=== PATIENT | female | born 1975 ===

== ENCOUNTER 2017-09-23 09:10 | Day surgery (SDC) | payer OTHER ==
--- NOTE | 2017-09-22 14:31 | GHP ---
[f rep st] PREOP HISTORY AND PHYSICAL DATE OF ADMISSION: 09/23/2017 PREOP DIAGNOSIS: Breast hypertrophy. HISTORY OF PRESENT ILLNESS: The patient is a 42-year-old woman, who has had 1 child. She has been b othered by breast hypertrophy for many years. She complains of neck, back, and shoulder pain. The e xcessive breast size interferes with her ability to exercise. PAST MEDICAL HISTORY: Generally unremarkable. She is healthy, nonsmoker. ALLERGIES: No known drug allergies. MEDICATIONS: Daily multivitamin. EXAMINATION: GENERAL: She is a healthy-looking 42-year-old woman. She stands 5 feet 9 inches tall, weighs 180 pounds. RESPIRATORY: Shows clear with good air entry. CARDIOVASCULAR: Heart sounds ar e normal. BREASTS: Reveals significant macromastia with a sternal [id number] distance of 33 cm on the right and 34 cm on the left. IMPRESSION: Fit for procedure. PLAN: Bilateral breast reduction. /[id number]/MODL
[2017-09-23] MEDS ORDERED: LIDO/EPI 1% **for epidural** 30 ML SDV ONE (09:22)
[2017-09-23] MEDS ORDERED: LIDOCAINE 1% 2 ML INJ ONE (09:49)
[2017-09-23] MEDS ORDERED: MIDAZOLAM 2 MG/2 ML VIAL IVP ONE (10:11)
--- NOTE | 2017-09-23 10:12 | PDANEPAE ---
ANE History of Present Illness Patient presents for bilateral breast reduction ANE Past Medical History - Cardiovascular History Hx Hypertension: No Hx Arrhythmias: No Hx Chest Pain: No Hx Coronary Artery / Peripheral Vascular Disease: No Hx CHF / Valvular Disease: No Hx Palpitations: No - Pulmonary History Hx COPD: No Hx Asthma/Reactive Airway Disease: No Hx Recent Upper Respiratory Infection: No Hx Oxygen in Use at Home: No Hx Sleep Apnea: No Sleep Apnea Screening Result - Last Documented: Negative - Neurologic History Hx Cerebrovascular Accident: No Hx Seizures: No Hx Dementia: No - Endocrine History Hx Diabetes: No - Renal History Hx Renal Disorders: No - Liver History Hx Hepatic Disorders: No - Neurological & Psychiatric Hx Hx Neurological and Psychiatric Disorders: No - Cancer History Hx Cancer: No Cancer History Comment: SKIN BASAL CELL - Congenital Disorder History Hx Congenital Disorders: No - GI History Hx Gastrointestinal Disorders: No - Other Health History Other Health History: NER - Chronic Pain History Chronic Pain: Yes (BACK & NECK FROM BREASTS) - Surgical History Prior Surgeries: NONE ANE Review of Systems Review of Systems: - Exercise capacity METS (RN): 6 METS ANE Patient History - Allergies Allergies/Adverse Reactions: No Known Allergies Allergy (Unverified 09/17/17 11:07) - Home Medications Home medications: home medication list seen and reviewed Home Medications: Multivitamin 09/17/17 [Last Taken 09/17/17] - NPO status NPO Status: no food or drink >8 hours NPO Since - Liquids (Date): 09/23/17 NPO Since - Liquids (Time): 07:30 NPO Since - Solids (Date): 09/22/17 NPO Since - Solids (Time): 20:00 - Anes Hx Anes Hx: no prior problems - Smoking Hx Smoking Status: Never smoked - Family Anes Hx Family Hx Anesthesia Complications: NEG ANE Labs/Vital Signs - Vital Signs Blood Pressure: 133/79 Heart Rate: 70 Respiratory Rate: 16 O2 Sat (%): 94 Height: 175.26 cm Weight: 82.1 kg ANE Physical Exam - Airway Neck exam: FROM Mallampati Score: Class 1 Mouth exam: normal dental/mouth exam - Pulmonary Pulmonary: no respiratory distress - Cardiovascular Cardiovascular: regular rate and rhythym - ASA Status ASA Status: I ANE Anesthesia Plan Anesthesia Plan: general endotracheal anesthesia (rba discussed)
[2017-09-23] MEDS ORDERED: LIDOCAINE 1% 2 ML INJ ID PRN (10:13)
[2017-09-23] MEDS ORDERED: LR 1,000 ML IV ONE (10:13)
[2017-09-23] MEDS ORDERED: fentaNYL 100 MCG/2 ML INJ ONE ×4 (10:33→13:56)
[2017-09-23] MEDS ORDERED: PROPOFOL/EMULSION 500 MG/50 ML BOTTLE IV ONE (10:33)
[2017-09-23] MEDS ORDERED: PROPOFOL 200 MG/20 ML VIAL ONE (10:33)
[2017-09-23] MEDS ORDERED: ROCURONIUM 50 MG/5 ML VIAL ONE ×2 (10:37→11:41)
[2017-09-23] MEDS ORDERED: DEXAMETHASONE 4 MG/ML VIAL ONE (10:37)
[2017-09-23] MEDS ORDERED: LIDOCAINE 2% 5 ML SDV ONE (10:37)
[2017-09-23] MEDS ORDERED: ONDANSETRON 4 MG/2 ML VIAL ONE (10:38)
[2017-09-23] MEDS ORDERED: ceFAZolin 2 GM/SWFI 2 GM/20 ML SYR IVP ONE (10:44)
--- NOTE | 2017-09-23 10:45 | PDHPUP ---
History & Physical Update H&P update statement: This history and physical update is based on an assessment of the patient which was completed after admission or registration (within 24 hours), but prior to the surgery/procedure.
[2017-09-23] MEDS ORDERED: ONDANSETRON 4 MG/2 ML VIAL IVP PRN (12:49)
[2017-09-23] MEDS ORDERED: LR 500 ML IV PRN (12:49)
[2017-09-23] MEDS ORDERED: OXYCODONE/APAP 5/325 TAB PO PRN (12:49)
[2017-09-23] MEDS ORDERED: HYDROCODONE/APAP 5/325 TAB PO PRN (12:49)
[2017-09-23] MEDS ORDERED: NALOXONE HCL 0.4 MG/ML INJ IVP PRN (12:49)
--- NOTE | 2017-09-23 13:34 | POSTOPPROG ---
Post Op Note Date of Operation: 09/23/17 Surgeon: Mauricio French Anesthesia: GET(General Endotracheal) Pre-op Diagnosis: breast hypertrophy Post-op Diagnosis: same Procedure: breast reductiom Inf/Abcess present in the surg proc area at time of surgery?: No EBL: 50-100 Drains: Joni Grimes
--- NOTE | 2017-09-23 13:51 | POSTANESTH ---
Post Anesthetic Evaluation Cardiovascular Status: Similar to Pre-Op Cond Respiratory Status: Similar to Pre-op Cond. Level of Consciousness/Mental Status: Can Participate in Eval Pain Control: Adequate, Prn Tx Ordered Nausea/Vomiting Control: Adequate, Prn Tx Ordered Complications Possibly Related to Anesthesia: None Noted
[2017-09-23] MEDS: fentaNYL 100 MCG/2 ML INJ IVP PRN ×2 (13:59→14:06)
[2017-09-23] MEDS ORDERED: HYDROCODONE/APAP 5/325 TAB ONE (14:08)
[2017-09-23 14:22] VITALS: RESP 14; TEMP 97.9; O2SAT 94
--- NOTE | 2017-09-23 14:22 | GOP ---
[f rep st] OPERATIVE REPORT DATE OF OPERATION: 09/23/2017 SURGEON: Mauricio French MD PREOPERATIVE DIAGNOSIS: Breast hypertrophy. POSTOPERATIVE DIAGNOSIS: Breast hypertrophy. PROCEDURE PERFORMED: Bilateral breast reduction. FINDINGS: ESTIMATED BLOOD LOSS: 125 cc. DESCRIPTION OF PROCEDURE: The patient lying supine under general anesthesia, anterior chest region w as prepped and draped in the usual fashion. Incisions were made according to preoperative markings f or a Arreaga pattern breast reduction with superior medial pedicle technique. Pedicles were de-epitheli alized. Skin flaps were raised just above the level of the glandular tissue. The gland was complete ly circumscribed. The lateral and superior glandular tissue was excised. Bleeders were controlled w ith electrocautery. On the right side, 952 g of tissue was removed and on the left side 1128 g of ti ssue was removed. Joni-Grimes drains were placed bilaterally. Closure was carried out with 3-0 St ratafix running subcuticular sutures. Dressings of Steri-Strips and gauze were applied. The procedu re was tolerated well. /[id number]/MODL
[2017-09-23 14:33] VITALS: BP 124/82; PULSE 86
== END 2017-09-23 15:10 | disposition home or self-care (01) ==
LOC: FSGY 09:10
PROVIDERS: ATTEND Plastic Surgery
PROC: 0HBV0ZZ Excision of Bilateral Breast, Open Approach (ICD-10-PCS; principal; 2017-09-23 10:30)
DX: N62 Hypertrophy of breast (principal)
CPT/HCPCS: J1100; J2250; J2405; J2704; J3010